=== PATIENT | male | born 1945 | race Caucasian/White ===

== ENCOUNTER → 2018-05-22 | Outpatient (CLI) | payer OTHER, MEDICARE ==
[~2018-05-22] MED LIST: BACTRIM DS TAB1 EACH PO; LOTREL 5-20 MG1 EACH PO; NAPROSYN500 MG PO; SIMVASTATIN40 MG PO
== END ==
LOC: RAD 10:18
DX: M47.816 Spondylosis without myelopathy or radiculopathy, lumbar region (principal); M25.78 Osteophyte, vertebrae; I70.0 Atherosclerosis of aorta; Z88.0 Allergy status to penicillin

== ENCOUNTER → 2019-05-27 | Outpatient (CLI) | payer OTHER, MEDICARE | LOC: MRI 14:06 | DX: M51.16 Intervertebral disc disorders with radiculopathy, lumbar region (principal); M43.17 Spondylolisthesis, lumbosacral region; M46.87 Other specified inflammatory spondylopathies, lumbosacral region; M48.061 Spinal stenosis, lumbar region without neurogenic claudication; M89.38 Hypertrophy of bone, other site; M53.86 Other specified dorsopathies, lumbar region ==